=== PATIENT | female | born 1980 | race Caucasian/White ===

== ENCOUNTER 2022-06-17 06:05 | Emergency (ER) | payer BC ==
[~2022-06-17] VITALS: Ht 167.6 cm; Wt 63.0 kg
[2022-06-17] VITALS (10 sets, daily range): BP systolic 103–118; BP diastolic 67–78
[~2022-06-17 06:05] MED LIST: MIRCETTE28 DAY PO; PRENATAL1 TAB PO; TAM75CAP PO
[2022-06-17 07:00] LABS: HEMATOCRIT 38.6 % (37.0-47.0); HEMOGLOBIN 13.1 g/dl (12.0-16.0); IMMATURE GRANULOCYTES 0.1 % (0.0-5.0); MEAN CELL VOLUME 92.6 fL CALC (80.0-100.0); MEAN CORPUSCULAR HGB 31.4 pG CALC (26.0-32.0); MEAN CORPUSCULAR HGB CONC 33.9 g/dL CAL (32.0-36.0); NEUT# 11.23 thou/uL (2.00-7.15); RED BLOOD COUNT 4.17 mill/uL (4.20-5.60); RED CELL DISTRI WIDTH 12.5 % (11.5-15.5); URINE BILIRUBIN - DIPSTICK NEGATIVE (NEGATIVE); URINE BLOOD DIPSTICK NEGATIVE (NEGATIVE); URINE COLOR YELLOW; URINE GLUCOSE - DIPSTICK NEGATIVE (NEGATIVE); URINE KETONE NEGATIVE (NEGATIVE); URINE LEUK ESTERASE NEGATIVE (NEGATIVE); URINE PROTEIN - DIPSTICK NEGATIVE (NEG-TRACE); URINE UROBILINOGEN - DIPSTICK 0.2 E.U./dL (0.2)
[2022-06-17 07:01] LABS: URINE NITRITE - DIPSTICK NEGATIVE (Negative)
[2022-06-17 07:13] LABS: ALKALINE PHOSPHATASE 65 u/l (38-126); ANION GAP 12 (6-22 (CALC)); BILIRUBIN, TOTAL 0.7 mg/dL (0.0-1.4); BUN 12 mg/dL (7-17); BUN/CREATININE RATIO 19 (12-20 (CALC)); CARBON DIOXIDE 24 mmol/l (22-30); CHLORIDE 106 mmol/l (95-108); CREATININE 0.6 mg/dL (0.5-1.0); GFR FOR AFR.AMER. > 60 ML/MIN (>=60 (CALC)); GFR OTHER RACES > 60 ML/MIN (>=60 (CALC)); LIPASE 30 u/l (23-300); POTASSIUM 4.2 mmol/l (3.5-5.1); SODIUM 138 mmol/l (137-146); TOTAL PROTEIN 6.5 g/dL (6.3-8.2)
[2022-06-17 07:21] LABS: SGOT/AST 30 u/l (14-36)
== END 2022-06-17 09:40 | disposition short-term general hospital (02) | DRG 373 ==
LOC: ED 06:05
PROVIDERS: Family Medicine
DX: K63.0 Abscess of intestine (principal); R10.32 Left lower quadrant pain
CPT/HCPCS: Q9967

== ENCOUNTER 2023-09-12 21:48 | Emergency (ER) | payer BC ==
[~2023-09-12] VITALS: Ht 165.1 cm; Wt 61.0 kg
[2023-09-12 21:59] VITALS: BP 126/76
[2023-09-12 22:00] VITALS: BP 117/75
[2023-09-12] MEDS ORDERED: ONDANSETRON HCl 4 MG/2 ML SDV IV STA (22:12)
[2023-09-12] MEDS ORDERED: TAMSULOSIN HCL 0.4 MG CAP PO STA (22:12)
[2023-09-12] MEDS ORDERED: SODIUM CHLORIDE 0.9% 1,000 ML IV STA (22:12)
[2023-09-12] MEDS ORDERED: KETOROLAC TROMETHAMINE 30 MG/ML SDV IV ONE (22:15)
[2023-09-12 22:30] LABS: BASO% 0.7 % (0-3); EOS% 0.8 % (0-8); HEMATOCRIT 36.8 % (37.0-47.0); HEMOGLOBIN 12.4 g/dl (12.0-16.0); IMMATURE GRANULOCYTES 0.1 % (0.0-5.0); LYMPH% 14.5 % (15-41); MEAN CELL VOLUME 91.3 fL CALC (80.0-100.0); MEAN CORPUSCULAR HGB 30.8 pG CALC (26.0-32.0); MEAN CORPUSCULAR HGB CONC 33.7 g/dL CAL (32.0-36.0); MONO% 8.5 % (2-13); NEUT# 6.84 thou/uL (2.00-7.15); NEUT% 75.4 % (42-76); RED BLOOD COUNT 4.03 mill/uL (4.20-5.60); RED CELL DISTRI WIDTH 11.8 % (11.5-15.5)
[2023-09-12 22:30] LABS: URINE BILIRUBIN - DIPSTICK Negative (NEGATIVE); URINE BLOOD DIPSTICK Trace-lysed (NEGATIVE); URINE GLUCOSE - DIPSTICK Negative (NEGATIVE); URINE KETONE 15 mg/dL (NEGATIVE); URINE LEUK ESTERASE Negative (NEGATIVE); URINE NITRITE - DIPSTICK Negative (Negative); URINE PH 5.5 (4.5-8.0); URINE PROTEIN - DIPSTICK Negative (NEG-TRACE); URINE SPECIFIC GRAVITY 1.015; URINE UROBILINOGEN - DIPSTICK 0.2 E.U./dL (0.2)
[2023-09-12 22:32] LABS: URINE COLOR Yellow
[2023-09-12 22:57] LABS: ALBUMIN 4.1 g/dL (3.2-5.0); BILIRUBIN, TOTAL 0.6 mg/dL (0.02-1.3); POTASSIUM 4.2 mmol/l (3.5-5.1)
[2023-09-12 23:01] LABS: CREATININE 1.4 mg/dL (0.5-1.0)
== END 2023-09-13 01:43 | disposition home or self-care (01) | DRG 761 ==
LOC: ED 21:48
PROVIDERS: Family Medicine
DX: N83.202 Unspecified ovarian cyst, left side (principal)

== ENCOUNTER 2024-04-22 07:04 | Day surgery (SDC) | payer BC ==
[~2024-04-22] VITALS: Ht 165.1 cm; Wt 63.5 kg
[2024-04-22] MEDS ORDERED: FAMOTIDINE 10MG/ML 2ML SDV IV ONE (07:11)
[2024-04-22] MEDS ORDERED: LACTATED RINGER'S 1,000 ML IV ONE (07:11)
[2024-04-22 09:31] VITALS: BP 108/70
[2024-04-22] MEDS ORDERED: SODIUM CHLORIDE 3,000 ML BAG FOR IRRIGATION IR ONE (09:49)
[2024-04-22] MEDS ORDERED: ONDANSETRON HCl 4 MG/2 ML SDV IV ONE (15:07)
[2024-04-22] MEDS ORDERED: GLYCOPYRROLATE 0.2 MG/ML IV ONE (15:07)
[2024-04-22] MEDS ORDERED: LIDOCAINE HCL 2% 2ML SDV IV ONE (15:07)
[2024-04-22] MEDS ORDERED: PROPOFOL 200 MG/20 ML VIAL IV ONE (15:07)
== END 2024-04-22 09:30 | disposition home or self-care (01) | DRG 395 ==
LOC: ORM 07:04
PROVIDERS: ATTEND Surgery
PROC: 0DBN8ZX Excision of Sigmoid Colon, Via Natural or Artificial Opening Endoscopic, Diagnostic (ICD-10-PCS; principal; 2024-04-22)
DX: D12.5 Benign neoplasm of sigmoid colon (principal); K57.30 Diverticulosis of large intestine without perforation or abscess without bleeding; K64.8 Other hemorrhoids; K64.4 Residual hemorrhoidal skin tags; Z87.19 Personal history of other diseases of the digestive system; Z01.818 Encounter for other preprocedural examination; Z11.52 Encounter for screening for COVID-19; Z98.890 Other specified postprocedural states